=== PATIENT | male | born 1945 | race Caucasian/White ===

== ENCOUNTER 2017-03-04 16:56 | Emergency (ER) | payer BC ==
[~2017-03-04] VITALS: Wt 99.8 kg
[2017-03-04] MEDS ORDERED: GLYBURIDE5 MG PO (17:59)
[2017-03-04] MEDS ORDERED: CILOSTAZOL100 MG PO (17:59)
[2017-03-04] MEDS ORDERED: METFORMIN1000 MG PO (18:00)
[2017-03-04] MEDS ORDERED: OXYBUTYNIN ER15 MG PO (18:00)
[2017-03-04] MEDS ORDERED: PLAVIX75 M1 PO (18:00)
[2017-03-04] MEDS ORDERED: CRESTOR40 M1 PO (18:00)
[2017-03-04] MEDS ORDERED: PANTOPRAZOLE SO40 MG PO (18:01)
[2017-03-04] MEDS ORDERED: AMLODIPINE BESY PO (18:01)
[2017-03-04 18:03] LABS: BASO % 0.4 % (0.0-1.0); EOS # 0.7 10*3/uL (0.0-0.4); EOS % 6.2 % (1.0-4.0); HEMOGLOBIN 11.2 g/dl (14.0-18.0); LYMPH # 1.9 10*3/uL (1.3-4.4); LYMPH % 17.5 % (27.0-41.0); MEAN CELL VOLUME 83.1 fl (80.0-94.0); MEAN CORPUSCULAR HGB 25.2 pg (27.0-31.0); MEAN CORPUSCULAR HGB CONC 30.3 g/dl (33.0-37.0); MEAN PLATELET VOLUME 9.5 fl (9.6-12.3); MONO # 1.1 10*3/uL (0.1-1.0); MONO % 10.3 % (3.0-9.0); NEUT # 7.1 10*3/uL (2.3-7.9); NEUT % 65.3 % (47.0-73.0); PLATELET COUNT AUTOMATED 449 10*3/uL (130-400); RED BLOOD COUNT 4.45 10*6/uL (4.50-5.90); RED CELL DISTRI WIDTH 16.6 % (0-14.5); WHITE BLOOD COUNT 10.8 10*3/uL (4.8-10.8)
[2017-03-04 18:14] LABS: INTERNATIONAL NORM RATIO 1.2 (2.0-3.5); PROTHROMBIN TIME 13.1 SECONDS (9.0-12.4)
[2017-03-04 18:20] LABS: ALBUMIN 3.5 gm/dl (3.1-4.5); ALKALINE PHOSPHATASE 87 U/L (45-117); BILIRUBIN, TOTAL 0.5 mg/dl (0.2-1.0); BUN 29 mg/dl (7-24); CARBON DIOXIDE 26 mmol/L (21-32); CHLORIDE 103 mmol/L (98-107); EST GLOM FILT AFRICAN AMERICAN 51 ml/min; GLUCOSE 124 mg/dL (65-99); MAGNESIUM 1.6 mg/dL (1.5-2.1); POTASSIUM 4.2 mmol/L (3.5-5.1); SGOT/AST 23 IU/L (3-35); SGPT/ALT 18 U/L (12-78); SODIUM 140 mmol/L (136-145); TOTAL PROTEIN 7.9 gm/dL (6.4-8.2)
[2017-03-04 18:25] LABS: TROPONIN I < 0.015 ng/ml (<0.045)
[2017-03-04 20:01] LABS: LA>2 REFLEX 2 HR DRAW NOW
== END 2017-03-04 20:33 | disposition short-term general hospital (02) ==
LOC: ED 16:56
PROVIDERS: Nurse Practitioner Family
DX: G45.9 Transient cerebral ischemic attack, unspecified (principal); I48.92 Unspecified atrial flutter; N28.9 Disorder of kidney and ureter, unspecified; Z79.899 Other long term (current) drug therapy